=== PATIENT | female | born 1995 | race Caucasian/White ===

== ENCOUNTER 2019-12-10 04:29 | Emergency (ER) | payer SELFPAY ==
[2019-12-10] VITALS (8 sets, daily range): BP systolic 111–141; BP diastolic 58–95; PULSE 92–115; RESP 14–18; TEMP 36.8; O2SAT 97–99; BMI 27.4
--- NOTE | 2019-12-10 04:33 | ECG_ITS ---
[facility] Test Date: 2019-12-10 Pat Name: Emily Harmon Department: Room: Gender: Female Labels Molder: : 1995 Requested By: Marivel James Order Number: [id number] Mendez MD: Stephanie Brian M.D. Measurements Intervals [place] Rate: 88 P: 58 NV: 165 QRS: 48 QRSD: 85 T: 36 QT: 398 QTc: 483 Interpretive Statements SINUS RHYTHM No previous ECG available for comparison Electronically Signed On 12-10-2019 15:36:08 CDT by Stephanie Brian M.D. [email or web address]
--- NOTE | 2019-12-10 04:35 | XRR_ITS ---
PROCEDURE INFORMATION: Exam: XR Chest, 1 View Exam date and time: 12/10/2019 5:26 AM Age: 24 years old Clinical indication: Other: Nausea, vomiting, diarrhea; Patient HX: PT is 15 weeks , . C/O nausea, vomiting, and diarrhea; Additional info: Syncope TECHNIQUE: Imaging protocol: XR of the chest Views: 1 view. COMPARISON: No relevant prior studies available. FINDINGS: Lungs: Unremarkable. No consolidation. Pleural space: Unremarkable. No pleural effusion. No pneumothorax. Heart/Mediastinum: Unremarkable. No cardiomegaly. Bones/joints: Unremarkable. XR/XR chest 1V portable [id number] IMPRESSION: No acute findings.
--- NOTE | 2019-12-10 04:37 | US_ITS ---
WS: [id number] Obstetrical ultrasound, limited. HISTORY: Pain. Single intrauterine gestation is identified. Limited biometry demonstrates an age of 15 weeks and 2 d ays. Normal cardiac activity 176 bpm. Normal amniotic fluid. Cervix is closed at 3.0 cm. Placenta is developing posteriorly with no abruption or previa. No free f luid or adnexal masses. US/US OB limited [id number] IMPRESSION: 1. Single intrauterine gestation 15 weeks 2 days with an EDC of 05/31/2020. 2. Posterior placenta with no complications.
--- NOTE | 2019-12-10 04:37 | US_ITS ---
WS: [id number] Complete ABDOMINAL ULTRASOUND HISTORY: Abdominal Pain COMPARISON: None available. Liver: 16.1 cm in length. Normal size liver with no adjacent ascites. Portal triads are very echogeni c. Gallbladder: Normally distended with no gallstones, wall thickening or pericholecystic fluid. Gallbladder wall thickness: 0.1 cm. Pancreas: Normal size and echogenicity. CBD: 0.5 cm. Right kidney: 10.0 cm x 4.7 cm x 4.8 cm. No mass, cortical thickening or hydronephrosis. Left kidney: 9.7 cm x 5.7 cm x 5.1 cm. No mass, cortical thickening or hydronephrosis. Spleen: Normal size and echogenicity. Abdominal aorta and IVC are within normal limits. No ascites. US/US abdomen complete* [id number] IMPRESSION: 1. Normal gallbladder. 2. No renal obstruction. 3. Prominent portal triads. This may be due to small size of the patient but h as also been reported with hepatitis.
[2019-12-10] MEDS: sodium chloride 0.9% 1,000 ML 999 ML IV ×2 (04:49→06:09)
[2019-12-10] MEDS: metoclopramide 5 mg/mL SDV 2 mL 10 MG IV (04:49)
[2019-12-10] MEDS: morphine 4 mg/mL SDV 1 mL IVP (04:49)
--- NOTE | 2019-12-10 05:55 | W.ED.NAVMDI ---
Documented by User: Marivel Mohan 12/10/19 05:59 HPI - Nausea/Vomiting/Diarrhea General: Chief complaint: Nausea/Vomiting/Diarrhea Stated complaint: N/V Time Seen by Provider: 12/10/19 04:33 Source: patient Mode of arrival: ambulatory Limitations: no limitations History of Present Illness: HPI Narrative: Emily is a 24-year-old female who comes in traveling from [place]. She is got severe nausea, vomiting and diarrhea. She also has dull abdominal pain. She is currently 15 weeks . She denies any fevers or chills or cough. She states she cannot keep anything down and anytime she tries to eat or drink anything it makes it much worse. Associated nausea: Yes Associated symtoms: Reports nausea; Denies change in vision, chest pain, diaphoresis, dizziness, dysuria, fatigue, headache(s), malaise, palpitations or syncope Review of Systems Const: Denies: fever(s), chills, body aches, fatigue, malaise or diaphoresis Eyes: Denies: change in vision, blurry vision, blind spots, photophobia, eye discharge or eye redness ENMT: Denies: throat pain, odynophagia, hoarseness, swelling of lips/tongue, oral sores, ear or mastoid pain, ear discharge, change in hearing or nasal discharge Card: Denies: chest pain, palpitations, irregular heart rhythm, edema, lightheadedness, syncope, pre-syncope, dyspnea on exertion or orthopnea Resp: Denies: dyspnea, productive cough, non-productive cough, wheezing, hemoptysis or chest congestion GI: Reports: abdominal pain, nausea, vomiting and diarrhea; Denies: hematemesis, coffee ground emesis, heartburn, constipation, GI cramping, hematochezia or melena : Denies: flank pain, dysuria, urinary frequency, urinary urgency or hematuria Musc: Denies: neck pain, back pain, extremity pain, extremity swelling, joint pain, joint swelling, joint redness, joint warmth or joint stiffness Skin/Breast: Denies: rash, pruritus, erythema, skin tenderness or jaundice Neuro: Denies: headache(s), numbness in extremities, weakness in extremities, sensory changes, lack of coordination, difficulty walking, dizziness, vertigo, confusion, Slurred speech present or seizure-like activity Kunal/Lymph: Denies: easy bruising, easy bleeding, petechiae, purpura or enlarged lymph nodes All/Imm: Denies: urticaria, throat swelling, tongue swelling, facial swelling or acute wheezing PFSH ED PFSH: Medical History (Updated 12/10/19 @ 09:38 by Oz Simon DO) No pertinent past medical history Surgical History (Updated 12/10/19 @ 05:58 by Marivel Mohan) H/O hand surgery Physical Exam Const: COMMON NORMALS: no acute distress, patient oriented x3, no limitations, healthy appearing and well nourished GENERAL APPEARANCE: cooperative, well kempt and well developed HENMT: COMMON NORMALS: normocephalic, atraumatic, external ears normal, EAC's normal and Normal external nose present HEAD & SCALP: normal to inspection, normocephalic and atraumatic FACE & SINUS: normal facial exam and face symmetric NOSE: Normal external nose present and Normal nares present EXTERNAL EAR: Yes external ears normal EXTERNAL AUDITORY CANAL: EAC's normal MOUTH: Normal oral and palatal mucosa present, lip normal and tongue normal Eye: COMMON NORMALS: Equal, round and reactive pupils present and conjunctivae normal GENERAL EYE: appearance normal, both eyes and all related structures ALIGNMENT: Yes alignment normal PERIORBITAL: periorbital findings normal EYELID: eyelids normal CONJUNCTIVA: Yes conjunctivae normal SCLERA: sclerae normal PUPIL: Yes Equal, round and reactive pupils present Neck/C-Spine: COMMON NORMALS: full ROM, no lymphadenopathy, supple, no meningeal signs and no JVD GENERAL: Yes normal visual inspection and Yes trachea midline Chest: COMMONS NORMALS: normal inspection of the chest and normal palpation of entire chest wall Resp: COMMON NORMALS: normal respiratory effort, No retractions and No use of accessory muscles EFFORT & INSPECTION: Yes able to speak in complete sentences and Yes symmetric chest movement AUSCULTATION: no crackles, no rales, no rhonchi and no wheezes Cardio: COMMON NORMALS: no JVD, regular rate, regular rhythm, S1 normal heart sound present and S2 normal heart sound present RATE: regular rate RHYTHM: regular rhythm HEART SOUNDS: S1 normal heart sound present, S2 normal heart sound present, no click, no gallops, no murmurs, no rubs and abnormal split S2 GI: COMMON NORMALS: Soft to palpation and No hepatosplenomegaly present PALPATION: Yes Soft to palpation, No Tenderness to palpation present (GI), No Guarding due to palpation present (GI), No Rigid due to palpation, Yes No hepatosplenomegaly present, No Hernia present, No Palpable mass present and No Pulsatile mass present : COMMON NORMALS: Yes no CVA tenderness BLADDER/KIDNEY EXAM: Yes no CVA tenderness EXTERNAL FEMALE EXAM: No Hernia present Back/Pelvis: COMMON NORMALS: no CVA tenderness, thoracic and lumbar spine normal to inspection, no thoracic nor lumbar tenderness and thoraco-lumbar ROM normal Extremity: COMMON NORMALS: normal to inspection, full ROM, capillary refill normal, no joint enlargement, no clubbing, cyanosis or edema and no calf tenderness Neuro: COMMON NORMALS: patient oriented x3, CN's II-XII intact bilaterally, moves all extremities, no focal motor deficits and no sensory deficits noted MENINGEAL SIGNS: Yes no meningeal signs SPEECH: speech normal Psych: COMMON NORMALS: mental status grossly normal, Normal thought process present, cooperative, normal affect, speech normal and activity/motor behavior normal APPEARANCE: Yes well kempt SPEECH: Yes normal speech THOUGHT PROCESS: Normal thought process present Skin: COMMON NORMALS: no rashes or lesions noted, turgor normal, no jaundice, no petechiae and no mottling GENERAL SKIN EXAM: no rashes or lesions noted and turgor normal Course Vital Signs: Vital signs: Vital Signs Temperature 98.2 F 12/10/19 04:31 Pulse Rate 111 H 12/10/19 09:13 Respiratory Rate 16 12/10/19 06:29 Blood Pressure 111/58 12/10/19 09:13 Pulse Oximetry 98 12/10/19 09:13 MDM - Nausea/Vomiting/Diarrhea Lab Data: Labs: Lab Results 12/10/19 12/10/19 12/10/19 Range/Units 05:30 05:30 06:44 WBC 15.5 H (4.0-10.0) 10^3/ uL RBC 3.53 L (4.1-5.3) 10^6/u L Hgb 10.7 L (11.5-15.3) g/dL Hct 31.9 L (37.0-47.0) % MCV 90.4 (81-99) fL MCH 30.3 (28.0-34.0) pg MCHC 33.5 (30.0-36.0) g/dL RDW 12.0 L (12.1-15.1) % Plt Count 297 (130-400) 10^3/c mm MPV 10.1 (7.4-10.4) fL Neut % (Auto) 92.9 % Lymph % (Auto) 4.5 % [place] % (Auto) 2.2 % Eos % (Auto) 0.0 % Baso % (Auto) 0.1 % Neut # (Auto) 14.38 H (1.8-7.7) 10^3/u L Lymph # (Auto) 0.7 L (0.8-4.8) 10^3/u L [place] # (Auto) 0.3 (0.2-0.9) 10^3/u L Eos # (Auto) 0.0 (0.0-0.8) 10^3/u L Baso # (Auto) 0.0 (0.0-0.1) 10^3/u L Nucleated RBC % (a uto) 0 % Nucleated RBCs # 0.0 /100WBC Sodium (136-145) mmol/L Potassium (3.5-5.1) mmol/L Chloride (98-107) mmol/L Carbon Dioxide (22-29) mmol/L Anion Gap (5-19) BUN (6-20) mg/dL Creatinine (0.5-0.9) mg/dL GFR Calculation (90-130) mL/min Glucose (65-115) mg/dL Calculated Osmolal ity (285-295) mOsm/k g Lactic Acid (0.5-2.2) mmol/L Calcium (8.5-10.5) mg/dL Magnesium (1.7-2.3) mg/dL Total Bilirubin (0.15-1.2) mg/dL AST (0-32) U/L ALT (0-33) U/L Alkaline Phosphata se (35-105) IU/L Creatine Kinase (26-192) U/L Total Protein (6.6-8.7) g/dL Albumin (3.5-5.2) g/dL Globulin (1.3-4.6) g/dL Lipase (13-60) U/L Ser , Leena i-Qnt mIU/mL Urine Color Yellow (Yellow) Urine Appearance Clear (CLEAR) Urine pH 7 (5-7) Ur Specific Gravit y 1.020 (1.005-1.030) Urine Protein Neg (Negative) Urine Glucose (UA) 1+ (Normal) Urine Ketones 3+ H (Negative) Urine Blood Neg (Negative) Urine Nitrate Negative (Negative) Urine Bilirubin Neg (NEGATIVE) Urine Urobilinogen Norm (Negative) mg/dL Ur Leukocyte Yolanda ase Negative (Negative) Urine RBC 0-4 H (0-2) /hpf Urine WBC 5-10 H (0-5) /hpf Ur Squamous Epith Cells 5-10 H (0-5) Urine Bacteria Trace (NONE) Urine Mucus Trace Urine Opiates Scre en Positive H (Negative) ng/mL Ur Barbiturates Sc reen Negative (Negative) ng/mL Ur Phencyclidine S crn Negative (Negative) ng/mL Ur Amphetamines Sc reen Negative (Negative) ng/mL U Benzodiazepines Scrn Negative (Negative) ng/mL Urine Cocaine Scre en Negative (Negative) ng/mL U Marijuana (THC) Screen Positive H (Negative) ng/mL Serum Ketones (Negative) 12/10/19 12/10/19 12/10/19 Range/Units 06:44 06:44 07:15 WBC (4.0-10.0) 10^3/ uL RBC (4.1-5.3) 10^6/u L Hgb (11.5-15.3) g/dL Hct (37.0-47.0) % MCV (81-99) fL MCH (28.0-34.0) pg MCHC (30.0-36.0) g/dL RDW (12.1-15.1) % Plt Count (130-400) 10^3/c mm MPV (7.4-10.4) fL Neut % (Auto) % Lymph % (Auto) % [place] % (Auto) % Eos % (Auto) % Baso % (Auto) % Neut # (Auto) (1.8-7.7) 10^3/u L Lymph # (Auto) (0.8-4.8) 10^3/u L [place] # (Auto) (0.2-0.9) 10^3/u L Eos # (Auto) (0.0-0.8) 10^3/u L Baso # (Auto) (0.0-0.1) 10^3/u L Nucleated RBC % (a uto) % Nucleated RBCs # /100WBC Sodium 134 L (136-145) mmol/L Potassium 3.2 L (3.5-5.1) mmol/L Chloride 103 (98-107) mmol/L Carbon Dioxide 16 L (22-29) mmol/L Anion Gap 18.2 (5-19) BUN 5 L (6-20) mg/dL Creatinine 0.5 (0.5-0.9) mg/dL GFR Calculation 150.3 H (90-130) mL/min Glucose 145 H (65-115) mg/dL Calculated Osmolal ity 277 L (285-295) mOsm/k g Lactic Acid 2.0 (0.5-2.2) mmol/L Calcium 8.2 L (8.5-10.5) mg/dL Magnesium 1.5 L (1.7-2.3) mg/dL Total Bilirubin 0.2 (0.15-1.2) mg/dL AST 12 (0-32) U/L ALT 10 (0-33) U/L Alkaline Phosphata se 37 (35-105) IU/L Creatine Kinase 42 (26-192) U/L Total Protein 6.7 (6.6-8.7) g/dL Albumin 3.8 (3.5-5.2) g/dL Globulin 2.9 (1.3-4.6) g/dL Lipase 25 (13-60) U/L Ser , [place] 60833.00 mIU/mL Urine Color (Yellow) Urine Appearance (CLEAR) Urine pH (5-7) Ur Specific Gravit y (1.005-1.030) Urine Protein (Negative) Urine Glucose (UA) (Normal) Urine Ketones (Negative) Urine Blood (Negative) Urine Nitrate (Negative) Urine Bilirubin (NEGATIVE) Urine Urobilinogen (Negative) mg/dL Ur Leukocyte Yolanda ase (Negative) Urine RBC (0-2) /hpf Urine WBC (0-5) /hpf Ur Squamous Epith Cells (0-5) Urine Bacteria (NONE) Urine Mucus Urine Opiates Scre en (Negative) ng/mL Ur Barbiturates Sc reen (Negative) ng/mL Ur Phencyclidine S crn (Negative) ng/mL Ur Amphetamines Sc reen (Negative) ng/mL U Benzodiazepines Scrn (Negative) ng/mL Urine Cocaine Scre en (Negative) ng/mL U Marijuana (THC) Screen (Negative) ng/mL Serum Ketones Negative (Negative) Imaging Data^: US OB: My impression: Tech interpretation -15-week 2-day IUP with a heart rate 176. Good baby movement. Cervix is long and closed. Discharge Plan Discharge Patient Disposition: Home, Self-Care Clinical Impression: Hyperemesis gravidarum Condition: Stable Discharge Orders: Discharge Order (Routine); Ordered 12/10/19 Ordered By: Oz Simon Sign Out Sign Out Data: Patient Sign Out occurred on 12/10/19 at 07:23. Patient's care was discussed, and care was transferred from to Oz Simon. Coding Level of Care Code ED Devops Solutions Architect for Chg Fwd Exam Comprehensive Documented by User: Oz Simon DO 12/10/19 09:38 HPI - Nausea/Vomiting/Diarrhea General: Chief complaint: Nausea/Vomiting/Diarrhea Stated complaint: N/V Time Seen by Provider: 12/10/19 04:33 [facility] ED PFSH: Medical History (Updated 12/10/19 @ 09:38 by Oz Simon DO) No pertinent past medical history Surgical History (Updated 12/10/19 @ 05:58 by Marivel Mohan) H/O hand surgery Course Vital Signs: Vital signs: Vital Signs Temperature 98.2 F 12/10/19 04:31 Pulse Rate 111 H 12/10/19 09:13 Respiratory Rate 16 12/10/19 06:29 Blood Pressure 111/58 12/10/19 09:13 Pulse Oximetry 98 12/10/19 09:13 MDM - Nausea/Vomiting/Diarrhea Lab Data: Labs: Lab Results 12/10/19 12/10/19 12/10/19 Range/Units 05:30 05:30 06:44 WBC 15.5 H (4.0-10.0) 10^3/ uL RBC 3.53 L (4.1-5.3) 10^6/u L Hgb 10.7 L (11.5-15.3) g/dL Hct 31.9 L (37.0-47.0) % MCV 90.4 (81-99) fL MCH 30.3 (28.0-34.0) pg MCHC 33.5 (30.0-36.0) g/dL RDW 12.0 L (12.1-15.1) % Plt Count 297 (130-400) 10^3/c mm MPV 10.1 (7.4-10.4) fL Neut % (Auto) 92.9 % Lymph % (Auto) 4.5 % [place] % (Auto) 2.2 % Eos % (Auto) 0.0 % Baso % (Auto) 0.1 % Neut # (Auto) 14.38 H (1.8-7.7) 10^3/u L Lymph # (Auto) 0.7 L (0.8-4.8) 10^3/u L [place] # (Auto) 0.3 (0.2-0.9) 10^3/u L Eos # (Auto) 0.0 (0.0-0.8) 10^3/u L Baso # (Auto) 0.0 (0.0-0.1) 10^3/u L Nucleated RBC % (a uto) 0 % Nucleated RBCs # 0.0 /100WBC Sodium (136-145) mmol/L Potassium (3.5-5.1) mmol/L Chloride (98-107) mmol/L Carbon Dioxide (22-29) mmol/L Anion Gap (5-19) BUN (6-20) mg/dL Creatinine (0.5-0.9) mg/dL GFR Calculation (90-130) mL/min Glucose (65-115) mg/dL Calculated Osmolal ity (285-295) mOsm/k g Lactic Acid (0.5-2.2) mmol/L Calcium (8.5-10.5) mg/dL Magnesium (1.7-2.3) mg/dL Total Bilirubin (0.15-1.2) mg/dL AST (0-32) U/L ALT (0-33) U/L Alkaline Phosphata se (35-105) IU/L Creatine Kinase (26-192) U/L Total Protein (6.6-8.7) g/dL Albumin (3.5-5.2) g/dL Globulin (1.3-4.6) g/dL Lipase (13-60) U/L Ser , Leena i-Qnt mIU/mL Urine Color Yellow (Yellow) Urine Appearance Clear (CLEAR) Urine pH 7 (5-7) Ur Specific Gravit y 1.020 (1.005-1.030) Urine Protein Neg (Negative) Urine Glucose (UA) 1+ (Normal) Urine Ketones 3+ H (Negative) Urine Blood Neg (Negative) Urine Nitrate Negative (Negative) Urine Bilirubin Neg (NEGATIVE) Urine Urobilinogen Norm (Negative) mg/dL Ur Leukocyte Yolanda ase Negative (Negative) Urine RBC 0-4 H (0-2) /hpf Urine WBC 5-10 H (0-5) /hpf Ur Squamous Epith Cells 5-10 H (0-5) Urine Bacteria Trace (NONE) Urine Mucus Trace Urine Opiates Scre en Positive H (Negative) ng/mL Ur Barbiturates Sc reen Negative (Negative) ng/mL Ur Phencyclidine S crn Negative (Negative) ng/mL Ur Amphetamines Sc reen Negative (Negative) ng/mL U Benzodiazepines Scrn Negative (Negative) ng/mL Urine Cocaine Scre en Negative (Negative) ng/mL U Marijuana (THC) Screen Positive H (Negative) ng/mL Serum Ketones (Negative) 12/10/19 12/10/19 12/10/19 Range/Units 06:44 06:44 07:15 WBC (4.0-10.0) 10^3/ uL RBC (4.1-5.3) 10^6/u L Hgb (11.5-15.3) g/dL Hct (37.0-47.0) % MCV (81-99) fL MCH (28.0-34.0) pg MCHC (30.0-36.0) g/dL RDW (12.1-15.1) % Plt Count (130-400) 10^3/c mm MPV (7.4-10.4) fL Neut % (Auto) % Lymph % (Auto) % [place] % (Auto) % Eos % (Auto) % Baso % (Auto) % Neut # (Auto) (1.8-7.7) 10^3/u L Lymph # (Auto) (0.8-4.8) 10^3/u L [place] # (Auto) (0.2-0.9) 10^3/u L Eos # (Auto) (0.0-0.8) 10^3/u L Baso # (Auto) (0.0-0.1) 10^3/u L Nucleated RBC % (a uto) % Nucleated RBCs # /100WBC Sodium 134 L (136-145) mmol/L Potassium 3.2 L (3.5-5.1) mmol/L Chloride 103 (98-107) mmol/L Carbon Dioxide 16 L (22-29) mmol/L Anion Gap 18.2 (5-19) BUN 5 L (6-20) mg/dL Creatinine 0.5 (0.5-0.9) mg/dL GFR Calculation 150.3 H (90-130) mL/min Glucose 145 H (65-115) mg/dL Calculated Osmolal ity 277 L (285-295) mOsm/k g Lactic Acid 2.0 (0.5-2.2) mmol/L Calcium 8.2 L (8.5-10.5) mg/dL Magnesium 1.5 L (1.7-2.3) mg/dL Total Bilirubin 0.2 (0.15-1.2) mg/dL AST 12 (0-32) U/L ALT 10 (0-33) U/L Alkaline Phosphata se 37 (35-105) IU/L Creatine Kinase 42 (26-192) U/L Total Protein 6.7 (6.6-8.7) g/dL Albumin 3.8 (3.5-5.2) g/dL Globulin 2.9 (1.3-4.6) g/dL Lipase 25 (13-60) U/L Ser , [place]Qnt 74793.00 mIU/mL Urine Color (Yellow) Urine Appearance (CLEAR) Urine pH (5-7) Ur Specific Gravit y (1.005-1.030) Urine Protein (Negative) Urine Glucose (UA) (Normal) Urine Ketones (Negative) Urine Blood (Negative) Urine Nitrate (Negative) Urine Bilirubin (NEGATIVE) Urine Urobilinogen (Negative) mg/dL Ur Leukocyte Yolanda ase (Negative) Urine RBC (0-2) /hpf Urine WBC (0-5) /hpf Ur Squamous Epith Cells (0-5) Urine Bacteria (NONE) Urine Mucus Urine Opiates Scre en (Negative) ng/mL Ur Barbiturates Sc reen (Negative) ng/mL Ur Phencyclidine S crn (Negative) ng/mL Ur Amphetamines Sc reen (Negative) ng/mL U Benzodiazepines Scrn (Negative) ng/mL Urine Cocaine Scre en (Negative) ng/mL U Marijuana (THC) Screen (Negative) ng/mL Serum Ketones Negative (Negative) Discharge Plan Discharge Patient Disposition: Home, Self-Care Clinical Impression: Hyperemesis gravidarum Condition: Stable Discharge Orders: Discharge Order (Routine); Ordered 12/10/19 Ordered By: Oz Simon Sign Out Sign Out Data: Patient Sign Out occurred on 12/10/19 at 07:23. Patient's care was discussed, and care was transferred from to Oz Simon. Coding Level of Care Code ED Devops Solutions Architect for [place] Fwd Exam Comprehensive
[2019-12-10 06:28] LABS: Bilirubin Urine Neg (NEGATIVE); Blood Urine Neg (Negative); Glucose Urine UA 1+ (Normal); Ketones Urine 3+ (Negative); Leukocyte Esterase Urine Negative (Negative); Nitrate Urine Negative (Negative); Protein Urine Neg (Negative); RBC Urine 0-4 /hpf (0-2); Urine Appearance Clear (CLEAR); Urine Color Yellow (Yellow); Urobilinogen Urine Norm (Negative); pH Urine 7 (5-7)
[2019-12-10 06:29] LABS: Add Urine Culture? No; Bacteria Urine TRACE; Mucus Urine TRACE
[2019-12-10 06:42] LABS: Amphetamines Screen Urine Negative (Negative); Barbiturates Screen Urine Negative (Negative); Benzodiazepines Screen Urine Negative (Negative); Cocaine Screen Urine Negative (Negative); Opiate Screen Urine Positive (Negative); PCP Screen Urine Negative (Negative); THC Screen Urine Positive (Negative)
[2019-12-10 06:50] LABS: Basophils % 0.1 %; Hematocrit 31.9 % (37.0-47.0); Hemoglobin 10.7 g/dL (11.5-15.3); Lymphocytes # 0.7 10^3/uL (0.8-4.8); Lymphocytes % 4.5 %; Mean Corpuscular HGB Conc 33.5 g/dL (30.0-36.0); Mean Corpuscular Hemoglobin 30.3 pg (28.0-34.0); Mean Corpuscular Volume 90.4 fL (81-99); Mean Platelet Volume 10.1 fL (7.4-10.4); Monocytes # 0.3 10^3/uL (0.2-0.9); Monocytes % 2.2 %; Neutrophils # 14.38 10^3/uL (1.8-7.7); Neutrophils % 92.9 %; Nucleated Red Blood Cells % 0 %; Platelet Count 297 10^3/cmm (130-400); Red Blood Count 3.53 10^6/uL (4.1-5.3); White Blood Count 15.5 10^3/uL (4.0-10.0)
--- NOTE | 2019-12-10 07:02 | PC.NURSE ---
REPORT GIVEN TO AGNES Alvarado FOR TRANSFER OF CARE.
[2019-12-10 07:13] LABS: Ketone (Acetest) Serum Negative (Negative)
[2019-12-10 07:20] LABS: Alanine Aminotransferase 10 U/L (0-33); Albumin Level 3.8 g/dL (3.5-5.2); Alkaline Phosphatase 37 IU/L (35-105); Aspartate Amino Transferase 12 U/L (0-32); Chloride 103 mmol/L (98-107); Creatine Phosphokinase 42 U/L (26-192); Glucose 145 mg/dL (65-115); Potassium 3.2 mmol/L (3.5-5.1); Sodium 134 mmol/L (136-145)
[2019-12-10 07:40] LABS: Anion Gap 18.2 (5-19); Blood Urea Nitrogen 5 mg/dL (6-20); Calcium 8.2 mg/dL (8.5-10.5); Carbon Dioxide 16 mmol/L (22-29); Globulin 2.9 g/dL (1.3-4.6); Glomerular Filtration Rate 150.3 mL/min (90-130); Lipase 25 U/L (13-60); Magnesium 1.5 mg/dL (1.7-2.3); Osmolality Calculated 277 mOsm/kg (285-295); Total Bilirubin 0.2 mg/dL (0.15-1.2); Total Protein 6.7 g/dL (6.6-8.7)
[2019-12-10] MEDS: ondansetron 2 mg/ML SDV 2 mL 4 MG IVP (07:50)
[2019-12-10] MEDS: sodium chloride 0.9% 1,000 ML 100 ML IV (07:57)
== END 2019-12-10 09:44 | disposition home or self-care (01) ==
PROVIDERS: Emergency Medicine; Emergency Provider Family Medicine
DX: O21.0 Mild hyperemesis gravidarum (principal); Z3A.15 15 weeks gestation of pregnancy
CPT/HCPCS: 12345; 36415; 71045; 76700; 76815; 80053; 80306; 81001; 82009; 82550; 83605; 83690; 83735; 84702; 85025; 93005; 96361; 96374; 96375; 99284; J2270; J2405; J2765; J7030